=== PATIENT | female | born 2000 | race Hispanic/Latino ===

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

== ENCOUNTER 2023-12-26 20:27 | Emergency (ER) | payer SELFPAY ==
[~2023-12-26] VITALS: Ht 157.5 cm; Wt 85.7 kg
[~2023-12-26 20:27] MED LIST: ALBUHFA IH; AZIT500T4 PO
[2023-12-26] MEDS ORDERED: CIPR7.5D7 OT (20:47)
[2023-12-26 20:51] VITALS: BP 100/78; PULSE 80; RESP 16; TEMP 98.3; O2SAT 98
== END 2023-12-26 21:00 | disposition home or self-care (01) ==
LOC: EDH 20:27
DX: H60.91 Unspecified otitis externa, right ear (principal)